=== PATIENT | female | born 1975 | race African-American/Black ===

== ENCOUNTER 2016-07-28 17:40 | Emergency (ER) | payer BC ==
[~2016-07-28 17:40] MED LIST: GAS-X80 MG PO
== END 2016-07-28 20:47 | disposition home or self-care (01) ==
LOC: ER 17:40
DX: S93.402A Sprain of unspecified ligament of left ankle, initial encounter (principal); Z79.899 Other long term (current) drug therapy; W10.9XXA Fall (on) (from) unspecified stairs and steps, initial encounter
CPT/HCPCS: 73610-LT; 99283; A9270-GY